=== PATIENT | male | born 1990 | race Caucasian/White ===

== ENCOUNTER 2021-01-05 15:49 | Emergency (ER) | payer OTHER ==
[2021-01-05 16:25] LABS: HEMOGLOBIN 15.9 gm/dl (14.0-17.5); RED BLOOD COUNT 5.05 M/UL (4.20-5.50); WHITE BLOOD COUNT 6.6 K/UL (4.5-11.0)
[2021-01-05 17:01] LABS: BUN/CREATININE RATIO 12 (0-10)
== END 2021-01-05 18:50 | disposition home or self-care (01) ==
LOC: ER1 15:49
PROVIDERS: Urology
DX: R07.2 Precordial pain (principal); R73.9 Hyperglycemia, unspecified
CPT/HCPCS: 80053; 82550; 82553; 83874; 84484; 85025; 93005; 99285